=== PATIENT | male | born 1985 | race Caucasian/White ===

== ENCOUNTER 2019-05-13 08:23 | Emergency (ER) | payer BC ==
[~2019-05-13] VITALS: Ht 172.7 cm; Wt 81.6 kg
[2019-05-13 08:29] VITALS: BP_SYST 132
[2019-05-13 09:15] VITALS: BP_SYST 132
== END 2019-05-13 09:15 | disposition home or self-care (01) ==
LOC: SED 08:23
DX: R50.9 Fever, unspecified (principal); R06.02 Shortness of breath; J45.909 Unspecified asthma, uncomplicated
CPT/HCPCS: 99283